=== PATIENT | female | born 1990 | race Asian ===

== ENCOUNTER → 2025-07-30 | Outpatient (CLI) | payer OTHER ==
[2025-07-30 14:14] LABS: PLATELET COUNT, AUTOMATED 291 10^3/uL (150-450)
[2025-07-30 15:12] LABS: Trichomonas vaginalis (AMP) NOT DETECTED (NEGATIVE)
[2025-07-30 15:20] LABS: HIV 1&2 SCREEN NEGATIVE (NEGATIVE)
[2025-07-30 15:28] LABS: HEPATITIS C VIRUS ABY INDEX 0.02 INDEX (<0.8)
[2025-07-30 15:35] LABS: GC DNA AMPLIFICATION NEGATIVE (NEGATIVE)
== END ==
LOC: M PLALAB 11:49
PROVIDERS: ATTEND Student in an Organized Health Care Education/Training Program
DX: Z34.80 Encounter for supervision of other normal pregnancy, unspecified trimester (principal)

== ENCOUNTER → 2025-09-27 | Outpatient (CLI) | payer OTHER | LOC: M WHC 09:34 | PROVIDERS: ATTEND Student in an Organized Health Care Education/Training Program | DX: Z34.80 Encounter for supervision of other normal pregnancy, unspecified trimester (principal) ==